=== PATIENT | female | born 1955 | race Caucasian/White ===

== ENCOUNTER 2021-01-03 02:33 | Emergency (ER) | payer BC ==
[~2021-01-03] VITALS: Ht 167.6 cm; Wt 84.5 kg
--- NOTE | 2021-01-03 03:10 | NUR ---
LAB AT BEDSIDE
--- NOTE | 2021-01-03 03:20 | NUR ---
PT TO ULTRASOUND
[2021-01-03 03:32] LABS: BASOPHILS % (AUTO) 1 % (0-1); EOSINOPHILS % (AUTO) 4 % (1-7); LYMPHOCYTES % (AUTO) 37 % (22-44); MEAN CORPUSCULAR HEMOGLOBIN 29.5 pg (27.0-34.8); MEAN CORPUSCULAR HGB CONC 33.2 g/dL (32.4-35.8); MEAN PLATELET VOLUME 7.3 fL (7.4-10.4); MONOCYTES % (AUTO) 8 % (2-9); NEUTROPHILS % (AUTO) 50 % (42-75); PLATELET COUNT 312 x10^3/uL (130-400); RED BLOOD COUNT 4.79 x10^6/uL (3.82-5.3); RED CELL DISTRIBUTION WIDTH 14.6 % (9.6-15.2)
[2021-01-03 03:36] LABS: ALANINE AMINOTRANSFERASE 25 U/L (12-78); ALBUMIN 3.1 g/dL (3.4-5.0); ANION GAP 3 mmol/L (5-15); CALCIUM 9.5 mg/dL (8.5-10.1); CHLORIDE 109 mmol/L (98-107); CREATININE 0.82 mg/dL (0.55-1.02)
[2021-01-03 03:41] LABS: ALKALINE PHOSPHATASE 85 U/L (45-117); BILIRUBIN,TOTAL 0.3 mg/dL (0.2-1.0); TOTAL PROTEIN 7.4 g/dL (6.4-8.2); TROPONIN I < 0.015 ng/mL (0.000-0.045)
--- NOTE | 2021-01-03 04:01 | NUR ---
URINE COLLECTED AND SENT TO LAB
[2021-01-03 04:12] LABS: MICROSCOPIC NOT IND
--- NOTE | 2021-01-03 04:32 | NUR ---
ASSISTED PT TO RESTROOM AND BACK.
[2021-01-03] MEDS ORDERED: MAALOX/HYOSCYAMINE/LIDOCAINE 45 ML BTL PO ONE (05:00)
[2021-01-03] MEDS ORDERED: MAALOX/HYOSCYAMINE/LIDOCAINE 45 ML BTL ONE (05:12)
[2021-01-03 05:48] VITALS: BP 165/99
== END 2021-01-03 05:50 | disposition home or self-care (01) ==
LOC: ED 05:45
DX: K80.20 Calculus of gallbladder without cholecystitis without obstruction (principal); K29.00 Acute gastritis without bleeding; I10 Essential (primary) hypertension; R94.31 Abnormal electrocardiogram [ECG] [EKG]
CPT/HCPCS: 36415; 76700; 80053; 81003; 83690; 84484; 85025; 93005; 99285